=== PATIENT | male | born 1955 | race Caucasian/White ===

== ENCOUNTER 2021-01-18 13:15 | Emergency (ER) | payer MEDICARE, BC ==
--- NOTE | 2021-01-18 13:46 | EDM.PDOC ---
ED HPI GENERAL MEDICAL PROBLEM - General Chief Complaint: Lower Extremity Injury/Pain Stated Complaint: PAIN IN R KNEE Time Seen by Provider: 01/18/21 13:44 Source of Information: Reports: Patient History Limitations: Reports: No Limitations - History of Present Illness INITIAL COMMENTS - FREE TEXT/NARRATIVE: 2 days ago pt developed pain in the upper knee cap area, hurts when he bends the knee. He has not had an injury. Onset: Gradual, Other (last 2 days. ) Duration: Hour(s): Location: Reports: Lower Extremity, Right Associated Symptoms: Reports: No Other Symptoms right knee Pain Score (Numeric/FACES): 5 - Related Data Allergies Allergy/AdvReac Type Severity Reaction Status Date / Time No Known Allergies Allergy Verified 01/18/21 13:27 Home Meds: Home Meds NK [No Known Home Meds] 01/18/21 [History] Past Medical History - Past Health History Medical/Surgical History: Denies Medical/Surgical History HEENT History: Reports: Other (See Below) Other HEENT History: esophagus surgery - Past Surgical History Musculoskeletal Surgical History: Reports: Other (See Below) Other Musculoskeletal Surgeries/Procedures:: rotator cuff surgery Social & Family History - Tobacco Use Tobacco Use Status *Q: Never Tobacco User - Recreational Drug Use Recreational Drug Use: No Review of Systems - Review of Systems Review Of Systems: See Below Constitutional: Reports: No Symptoms Eyes: Reports: No Symptoms Ears: Reports: No Symptoms Nose: Reports: No Symptoms Mouth/Throat: Reports: No Symptoms Respiratory: Reports: No Symptoms Cardiovascular: Reports: No Symptoms Musculoskeletal: Reports: Other (pain in the rt knee at the insertion of the patellar tendon) Skin: Reports: No Symptoms Neurological: Reports: No Symptoms ED EXAM, GENERAL - Physical Exam Exam: See Below Free Text/Narrative:: pt has tenderness in the upper patellar area. on the rt. Exam Limited By: No Limitations General Appearance: Alert, Anxious, Mild Distress Extremities: Other (pt has tenderness at the insertion of the patellar tendon) Neurological: Alert, Oriented, Normal Cognition Course - Vital Signs Last Recorded V/S: Last Vital Signs Temp 36.4 C 01/18/21 13:28 Pulse 61 01/18/21 13:28 Resp 12 01/18/21 13:28 BP 155/86 H 01/18/21 13:28 Pulse Ox 98 01/18/21 13:28 - Orders/Labs/Meds Orders: Active Orders 24 hr Category Date Time Status Consult to Orthopedic Clinic [CONS] Routine Cons 01/18/21 14:34 Active Knee Min 4V Rt [CR] Stat Exams 01/18/21 13:43 Taken Triamcinolone Acetonide [Kenalog-40] Med 01/18/21 14:28 Active 40 mg INJECT ASDIRECTED PRN Medication Orders Triamcinolone Acetonide (Triamcinolone Acetonide 40 Mg/Ml 1 Ml Sdv) 40 mg INJECT ASDIRECTED PRN PRN Reason: Inflammation Meds: Medications Generic Name Dose Route Start Last Admin Trade Name Freq PRN Reason Stop Dose Admin Triamcinolone Acetonide 40 mg 01/18/21 14:28 Triamcinolone Acetonide 40 Mg/Ml 1 Ml Sdv INJECT ASDIRECTED PRN Inflammation - Re-Assessments/Exams Free Text/Narrative Re-Assessment/Exam: 01/18/21 14:39 xray showed some calcification near the tendon inswertion Departure - Departure Time of Disposition: 14:33 Disposition: Home, Self-Care 01 Condition: Fair Clinical Impression: Patellar tendonitis - Discharge Information Referrals: PCP,None [Primary Care Provider] - Forms: ED Department Discharge Care Plan Goals: do not over use, moist warm packs, naprosyn 500mg bid for the next week. Ortho appt if not improving. Sepsis Event Note (ED) - Evaluation Sepsis Screening Result: No Definite Risk - Focused Exam Vital Signs: Vital Signs Temp Pulse Resp BP Pulse Ox 01/18/21 13:28 36.4 C 61 12 155/86 H 98 - My Orders Last 24 Hours: My Active Orders 01/18/21 13:43 Knee Min 4V Rt [CR] Stat 01/18/21 14:28 Triamcinolone Acetonide [Kenalog-40] 40 mg INJECT ASDIRECTED PRN 01/18/21 14:34 Consult to Orthopedic Clinic [CONS] Routine - Assessment/Plan Last 24 Hours: My Active Orders 01/18/21 13:43 Knee Min 4V Rt [CR] Stat 01/18/21 14:28 Triamcinolone Acetonide [Kenalog-40] 40 mg INJECT ASDIRECTED PRN 01/18/21 14:34 Consult to Orthopedic Clinic [CONS] Routine
[2021-01-18] MEDS ORDERED: Triamcinolone Acetonide 40 MG/ML 1 ML SDV INJECT PRN (14:28)
--- NOTE | 2021-01-18 14:52 | CR ---
Knee Min 4V Rt CLINICAL HISTORY: Pain FINDINGS: No acute fracture or dislocation is noted. There are no osseous lesions. There is some streaky density and some ill-definition at the insertion of the quadriceps tendon on the patella. Previous injury is not excluded. There are no significant joint effusion. Articular surfaces are smooth. Impression: There is some ill-definition and discontinuity of the distal aspect of the quadriceps tendon at the patellar insertion. This may be relate to prior injury. No fracture or dislocation
== END 2021-01-18 15:22 | disposition home or self-care (01) ==
LOC: JP.ED 13:15
DX: M76.51 Patellar tendinitis, right knee (principal)
CPT/HCPCS: 73564; 96372; 99283; J3301